=== PATIENT | female | born 1995 | race Caucasian/White ===

== ENCOUNTER 2020-12-09 09:50 | Emergency (ER) | payer MEDICAID, SELFPAY ==
[2020-12-09 10:11] VITALS: BP 103/72; PULSE 86; RESP 16; TEMP 36.9; O2SAT 97; BMI 20.3
--- NOTE | 2020-12-09 10:26 | ED_ITS ---
HPI - Extremity Problem General: Chief complaint: Wound/Laceration Stated complaint: R Index finger swelling Time Seen by Provider: 12/09/20 09:52 Source: patient Mode of arrival: ambulatory Limitations: no limitations History of Present Illness: HPI Narrative: Patient is a 25-year-old female who presents to ED today with a complaint of redness, swelling, and severe pain to her right index finger. She states she initially noticed a small area of redness 5 days ago and states it has since progressed. Reports it has spontaneously drained twice but she can no longer get it to drain. She is complaining of a throbbing sensation. No fevers. No known trauma or fb. Tetanus UTD. MD Complaint: extremity pain and extremity swelling Onset (ago): day(s) Pain Consistency: constant Location: right and upper extremity Severity scale (1-10): >10 Quality: constant and other (throbbing) Radiation: none Relieving factors: nothing Exacerbating factors: palpation Associated symptoms: Reports no associated symptoms; Deny fever(s) Review of Systems Const: Denies: fever(s), chills or body aches Musc: Reports: extremity pain (R index finger) and extremity swelling (R index finger) Neuro: Denies: numbness in extremities Physical Exam Const: COMMON NORMALS: no acute distress, average body habitus, patient oriented x3, no limitations, healthy appearing, alert and well nourished Extremity: GENERAL: Yes normal exam except as noted OTHER: R distal index finger paronychia/felon present Neuro: COMMON NORMALS: patient oriented x3, no focal motor deficits and no sensory deficits noted SENSORIUM/ORIENTATION: Yes alert Skin: NARRATIVE SKIN EXAM: see extremity assessment for pertinent skin findings Procedures Abscess I/D Site: hand (R index finger) Side (if applicable): right Local Anesthetic: lidocaine 2% (digital block) Amount of anesthesia used (mL): 2.0 Technique: incised with #11 blade Amount of fluid expressed (mL): 1.0 Packing used?: none Course Vital Signs: Vital signs: Vital Signs Temperature 98.5 F 12/09/20 10:11 Pulse Rate 86 12/09/20 10:11 Respiratory Rate 16 12/09/20 10:11 Blood Pressure 103/72 12/09/20 10:11 Pulse Oximetry 97 12/09/20 10:11 MDM - Extremity (Nontraumatic) MDM Narrative: Medical decision making narrative: Patient here with R index felon most likely secondary from a paronychia. Nail fold/cuticle was gently lifted and odorous purulent material expressed and cultured. Lateral incision made along digit. Given IM ancef and finger soaked here. Will place on abx with strict return to ED precautions. Discharge Plan Discharge Patient Disposition: Home Clinical Impression: Felon of finger of right hand Condition: Stable Prescriptions: New cephalexin 500 mg capsule 500 mg PO Q6H 7 Days Qty: 28 RF: 0 Discharge Orders: Discharge ED (Routine); Ordered 12/09/20 Ordered By: Natalya England Patient Instructions: Paronychia (ED) Activity Restrictions/Additional Instructions: As we discussed you need to soak finger in warm soapy water for 15-20 minutes 3- 4 times a day. Begin antibiotics immediately. You need to return to the emergency department in 48 hours if finger continues to worsen. Coding Level of Care Code ED Electronic Service Technician for Sridevi Swenson Exam Expanded Problem Focused
--- NOTE | 2020-12-09 10:31 | XRR_ITS ---
PROCEDURE INFORMATION: Exam: XR Right Finger(s) Exam date and time: 12/09/2020 10:31 AM Age: 25 years old Clinical indication: Condition or disease; Swelling; Fingers; Right; Patient HX: Red swollen infection on the 2nd digit distal phalange for one week; Additional info: Index; Infection TECHNIQUE: Imaging protocol: XR Right fingers. Views: Minimum 2 views. COMPARISON: No relevant prior studies available. FINDINGS: Bones/joints: No fracture or dislocation. Soft tissues: Swelling of the 2nd finger soft tissues is present. No radiopaque foreign body identified. No evidence of focal osteopenia, periosteal reaction or cortical destruction to suggest osteomyelitis. XR/XR finger RT min 2V 69720 IMPRESSION: Swelling of the 2nd finger soft tissues, without evidence of osseous injury or radiopaque foreign body.
[2020-12-09] MEDS: lidocaine 2% INJ 20 mL INJECTION (11:00)
--- NOTE | 2020-12-09 11:20 | PC.NURSE ---
Per ED provider order, patient's wound soaking in betadine solution prior to dressing and DC.
[2020-12-09] MEDS: ceFAZolin 1,000 mg SDV 1000 MG IM (11:29)
== END 2020-12-09 11:48 | disposition home or self-care (01) ==
PROVIDERS: Emergency Provider Physician Assistant
DX: L03.011 Cellulitis of right finger (principal); L02.511 Cutaneous abscess of right hand
CPT/HCPCS: 10060; 73140; 87070; 87075; 87077; 87186; 87205; 96372; 99283; J0690

== ENCOUNTER 2021-04-10 06:26 | Emergency (ER) | payer MEDICAID, SELFPAY ==
[2021-04-10 06:31] VITALS: BP 95/56; PULSE 102; RESP 18; TEMP 36.2; O2SAT 100; BMI 19.0
--- NOTE | 2021-04-10 06:41 | W.ED.PREGNAN ---
HPI - General: Chief complaint: Vaginal Bleeding Stated complaint: 6 weeks preg, bleeding Time Seen by Provider: 04/10/21 06:38 History of Present Illness: HPI Narrative: 25-year-old G4, P3 SAB 0 patient who reports she is at approximately 6 weeks gestation presents complaining of vaginal bleeding that began overnight. She woke up with some vaginal bleeding around 3 AM and seemed to taper off she got back to sleep when she woke up again at 5 AM and had significantly increased. She denies any cramping or pain denies any dysuria urgency or frequency. She has initiated OB care with Dr. Alexis has not yet had an entry confirmed intrauterine . She denies any other medical problems. MD Complaint: vaginal bleeding Onset (ago): hour(s) Severity: mild Relieving factors: none Exacerbating factors: none Vaginal bleeding: light OB History - Current : no complications OB History - Previous Pregnancies: gestational diabetes (With second ) care: followed by OB (Vanesa) Associated symptoms: Reports vaginal bleeding; Deny abdominal pain, dyspareunia, dysuria, headache(s), malaise, nausea, rash, seizures, short of breath, syncope, vaginal discharge, visual changes, vomiting or weakness Review of Systems Const: Denies: malaise ENMT: Denies: throat pain, ear or mastoid pain, nasal discharge or nasal congestion Card: Denies: syncope Resp: Denies: dyspnea, productive cough or non-productive cough GI: Denies: abdominal pain, nausea or vomiting : Denies: dysuria, vaginal discharge or dyspareunia Skin/Breast: Denies: rash or pruritus Neuro: Denies: headache(s) PFSH ED PFSH: Social History Smoking and tobacco status: current every day smoker Physical Exam Const: COMMON NORMALS: no acute distress GENERAL APPEARANCE: cooperative and comfortable ORIENTATION/CONSCIOUSNESS: Yes awake, Yes oriented to person, Yes oriented to place and Yes oriented to time HENMT: COMMON NORMALS: normocephalic, atraumatic and hearing grossly normal bilaterally HEAD & SCALP: normocephalic and atraumatic Neck/C-Spine: COMMON NORMALS: no JVD Resp: COMMON NORMALS: normal respiratory effort, No retractions, No use of accessory muscles and clear to auscultation bilaterally AUSCULTATION: clear to auscultation bilaterally Cardio: COMMON NORMALS: no JVD, regular rate, regular rhythm and No murmurs present (Cardio) RATE: regular rate RHYTHM: regular rhythm GI: COMMON NORMALS: Soft to palpation and No hepatosplenomegaly present AUSCULTATION: Yes normoactive bowel sounds PALPATION: Yes Soft to palpation, No Tenderness to palpation present (GI), No Guarding due to palpation present (GI) and Yes No hepatosplenomegaly present : SPECULUM EXAM - VAGINA: Yes vaginal bleeding OB/EXTERNAL & SPECULUM: vaginal bleeding Extremity: COMMON NORMALS: normal to inspection, capillary refill normal, no clubbing, cyanosis or edema, no calf tenderness and no pedal edema Neuro: SENSORIUM/ORIENTATION: Yes oriented to person, Yes oriented to place and Yes oriented to time Skin: COMMON NORMALS: no rashes or lesions noted GENERAL SKIN EXAM: no rashes or lesions noted Course Vital Signs: Vital signs: Vital Signs Temperature 97.1 F L 04/10/21 06:31 Pulse Rate 83 04/10/21 08:39 Respiratory Rate 14 04/10/21 08:39 Blood Pressure 95/49 04/10/21 08:39 Pulse Oximetry 100 04/10/21 08:39 MDM - OB/Uterine Contractions MDM Narrative: Medical decision making narrative: Labs and imaging reviewed. Confirmed intrauterine with activity. We will go ahead and discharge her and have her follow-up in 2 days with primary care doctor repeat beta-hCG. Reviewed the findings with the patient and potential implications. The stay worsening symptoms return. Lab Data: Labs: Lab Results 04/10/21 04/10/21 04/10/21 07:04 07:04 07:04 WBC 7.4 10^3/uL 10^3/ uL (4.0-10.0) RBC 3.73 10^6/uL L 10 ^6/uL (4.1-5.3) Hgb 11.9 g/dL g/dL (11.5-15.3) Hct 34.4 % L % (37.0-47.0) MCV 92.2 fl fl (81-99) MCH 31.9 pg pg (28.0-34.0) MCHC 34.6 g/dL g/dL (30.0-36.0) RDW 12.0 % L % (12.1-15.1) Plt Count 275 10^3/cmm 10^3 /cmm (130-400) MPV 8.9 fL fL (7.4-10.4) Neut % (Auto) 66.0 % % Lymph % (Auto) 21.4 % % [place] % (Auto) 5.5 % % Eos % (Auto) 5.9 % % Baso % (Auto) 0.8 % % Neut # (Auto) 4.89 10^3/uL 10^3 /uL (1.8-7.7) Lymph # (Auto) 1.6 10^3/uL 10^3/ uL (0.8-4.8) [place] # (Auto) 0.4 10^3/uL 10^3/ uL (0.2-0.9) Eos # (Auto) 0.4 10^3/uL 10^3/ uL (0.0-0.8) Baso # (Auto) 0.1 10^3/uL 10^3/ uL (0.0-0.1) Nucleated RBC % (a uto) 0 % % Nucleated RBCs # 0.0 /100WBC /100W BC Sodium 136 mmol/L mmol/L (136-145) Potassium 3.9 mmol/L mmol/L (3.5-5.1) Chloride 102 mmol/L mmol/L (98-107) Carbon Dioxide 23 mmol/L mmol/L (22-29) Anion Gap 14.9 (5-19) BUN 9 mg/dL mg/dL (6-20) Creatinine 0.5 mg/dL mg/dL (0.5-0.9) GFR Calculation 150.3 mL/min H mL /min (90-130) Glucose 94 mg/dL mg/dL (65-115) Calculated Osmolal ity 280 mOsm/kg L mOs m/kg (285-295) Calcium 8.7 mg/dL mg/dL (8.5-10.5) Ser , [place]-Qnt 63962.00 mIU/mL m IU/mL Blood Type A Positive Rho(D) Type Positive Discharge Plan Discharge Patient Disposition: Home Clinical Impression: First-trimester bleeding Condition: Stable Prescriptions: No Action cephalexin 500 mg capsule 500 mg PO TID 7 Days Qty: 21 RF: 0 Discharge Orders: Discharge ED (Routine); Ordered 04/10/21 Ordered By: Colt Wong Referrals: Bon Alexis MD [Primary Care Provider] - Discharge Diet: Usual diet Discharge Activity: Resume usual activity Patient Instructions: Opioid Safety Activity Restrictions/Additional Instructions: Follow-up with your primary skatesman within the next 2 weeks return if you have further problems. Coding Level of Care Code ED Bench Worker Hollow Handle for Sridevi Fwd Exam Comprehensive
--- NOTE | 2021-04-10 06:44 | US_ITS ---
WS: [id number] ULTRASOUND EARLY TECHNIQUE: Transabdominal sonography of the pelvis was performed. Followed by transvaginal sonography to better evaluate the uterus and ovaries. CLINICAL INFORMATION: vaginal bleeding, confirm IUP LMP: 02/23/2021 Beta hCG: Unknown. COMPARISON: None. FINDINGS: UTERUS AND GESTATIONAL SAC Intrauterine gestations: Intrauterine gestational sac with pole and yolk sac. Detected cardiac activity. Estimated gestational age: 6w1d Estimated delivery December 03, 2021 Yolk sac: 0.4 cm. [place] rump length (CRL): 0.5 cm. heart motion: 160 BPM. Subchorionic hemorrhage: None. OVARIES Right ovary: Right hemorrhagic corpus luteum cyst measuring 2.5 x 2.3 x 2.4 cm. Left ovary: Normal. FREE FLUID None. US/US OB transvaginal [id number] IMPRESSION: 1. Single live intrauterine . Cardiac activity detected. 2. Estimated gestational age; 6w1d. Estimated date of delivery December 03, 2021 3. No free fluid in the cul-de-sac. 4. Right corpus luteum cyst measuring 2.5 x 2.3 x 2.4 cm. Normal left ovary. 5. No free fluid in the cul-de-sac.
[2021-04-10 07:11] VITALS: BP 100/62; PULSE 77; RESP 14; O2SAT 100
[2021-04-10 07:13] LABS: Basophils # 0.1 10^3/uL (0.0-0.1); Basophils % 0.8 %; Eosinophils # 0.4 10^3/uL (0.0-0.8); Eosinophils % 5.9 %; Hematocrit 34.4 % (37.0-47.0); Hemoglobin 11.9 g/dL (11.5-15.3); Lymphocytes # 1.6 10^3/uL (0.8-4.8); Lymphocytes % 21.4 %; Mean Corpuscular HGB Conc 34.6 g/dL (30.0-36.0); Mean Corpuscular Hemoglobin 31.9 pg (28.0-34.0); Mean Corpuscular Volume 92.2 fl (81-99); Mean Platelet Volume 8.9 fL (7.4-10.4); Monocytes # 0.4 10^3/uL (0.2-0.9); Monocytes % 5.5 %; Neutrophils # 4.89 10^3/uL (1.8-7.7); Nucleated Red Blood Cells % 0 %; Platelet Count 275 10^3/cmm (130-400); Red Blood Count 3.73 10^6/uL (4.1-5.3); White Blood Count 7.4 10^3/uL (4.0-10.0)
[2021-04-10 08:08] LABS: Anion Gap 14.9 (5-19); Blood Urea Nitrogen 9 mg/dL (6-20); Calcium 8.7 mg/dL (8.5-10.5); Carbon Dioxide 23 mmol/L (22-29); Chloride 102 mmol/L (98-107); Glomerular Filtration Rate 150.3 mL/min (90-130); Glucose 94 mg/dL (65-115); Osmolality Calculated 280 mOsm/kg (285-295); Potassium 3.9 mmol/L (3.5-5.1); Sodium 136 mmol/L (136-145)
[2021-04-10 08:39] VITALS: BP 95/49; PULSE 83; RESP 14; O2SAT 100
== END 2021-04-10 08:38 | disposition home or self-care (01) ==
PROVIDERS: Emergency Provider Family Medicine; PCP Family Medicine
DX: O20.9 Hemorrhage in early pregnancy, unspecified (principal); O99.331 Smoking (tobacco) complicating pregnancy, first trimester; F17.210 Nicotine dependence, cigarettes, uncomplicated; Z3A.01 Less than 8 weeks gestation of pregnancy
CPT/HCPCS: 76815; 76817; 80048; 84702; 85025; 86900; 99283